=== PATIENT | female | born 1995 | race Caucasian/White ===

== ENCOUNTER 2018-04-08 15:15 | Emergency (ER) | payer BC ==
[2018-04-08 15:25] VITALS: BP 122/61
--- NOTE | 2018-04-08 15:36 | EDM.PDOC ---
ED HPI GENERAL MEDICAL PROBLEM - General Chief Complaint: Skin Complaint Stated Complaint: [id number] BIT OR SCRATCHED BY A CAT-RABIES CHECK Time Seen by Provider: 04/08/18 15:35 Source of Information: Reports: Patient History Limitations: Reports: No Limitations - History of Present Illness INITIAL COMMENTS - FREE TEXT/NARRATIVE: Healthy 22yr old at 22 weeks gestation presents with c/o a cat bite or scratch to the back of the left leg yesterday. Pt states she was walking her dog, and the dog and cat got into a fight. She states the cat had a collar on, looked healthy, and belongs to a known house in her neighborhood. She did not inquire of the cat's owners as to the vaccination status of the cat. She denies any fever, chills, or signs of wound infection. She denies any concerns or abnormal Sx's relating to her at this time. Pt has up to date tetanus vaccination. Onset Date: 04/07/18 Location: Reports: Lower Extremity, Left Severity: Mild Associated Symptoms: Reports: No Other Symptoms - Related Data Allergies Allergy/AdvReac Type Severity Reaction Status Date / Time azithromycin Allergy Rash Verified 04/08/18 15:22 [From Zithromax Z-Samm] Home Meds: Home Meds Acetaminophen [Tylenol Extra Strength] 1,000 mg PO ASDIRECTED PRN 11/04/15 [ History] Past Medical History HEENT History: Reports: Impaired Vision Cardiovascular History: Reports: None Respiratory History: Reports: None Gastrointestinal History: Reports: None Genitourinary History: Reports: None ANIMAL STUNNER History: Reports: Musculoskeletal History: Reports: None Neurological History: Reports: None Psychiatric History: Reports: None Endocrine/Metabolic History: Reports: None Hematologic History: Reports: None Immunologic History: Reports: None Oncologic (Cancer) History: Reports: None Dermatologic History: Reports: None - Infectious Disease History Infectious Disease History: Reports: None - Past Surgical History Head Surgeries/Procedures: Reports: None Social & Family History - Family History Family Medical History: Noncontributory - Tobacco Use Smoking Status *Q: Never Smoker Second Hand Smoke Exposure: No - Caffeine Use Caffeine Use: Reports: Soda, Tea - Recreational Drug Use Recreational Drug Use: No - Living Situation & Occupation Living situation: Reports: with Family ED ROS GENERAL - Review of Systems Review Of Systems: ROS reveals no pertinent complaints other than HPI. ED EXAM, SKIN/RASH Exam: See Below Exam Limited By: No Limitations General Appearance: Alert, WD/WN, No Apparent Distress Head: Atraumatic, Normocephalic Respiratory/Chest: No Respiratory Distress (Female) Exam: Other (benign gravid abd.) Extremities: Normal Range of Motion, Non-Tender, No Pedal Edema, Normal Capillary Refill, Other (linear abrasion 6cm to posterior left lower leg, no sign of infection) Neurological: Alert, No Motor/Sensory Deficits Psychiatric: Normal Mood Course - Vital Signs Last Recorded V/S: Last Vital Signs Temp 37.1 C 04/08/18 15:22 Pulse 100 04/08/18 15:22 Resp 18 04/08/18 15:22 BP 122/61 04/08/18 15:22 Pulse Ox 100 04/08/18 15:22 - Re-Assessments/Exams Free Text/Narrative Re-Assessment/Exam: 04/08/18 16:04 Dr. Lee made aware of the pt's injury. Departure - Departure Time of Disposition: 15:47 Disposition: Home, Self-Care 01 Condition: Good Clinical Impression: Cat bite of left lower leg Qualifiers: Encounter type: initial encounter Qualified Code(s): S81.852A - Open bite, left lower leg, initial encounter - Discharge Information Instructions: Animal Bite, [id number] Referrals: Lita Lee MD [Primary Care Provider] - Forms: ED Department Discharge Additional Instructions: Rx: Augmentin 875mg Rx: Bactroban ointment 2% Check with the house the cat belongs to for information regarding the rabies vaccination status of the animal, and to ensure the the cat will be monitored for 10 days for any signs of illness. Return to the ER if the cat cannot be observed for 10 days.
== END 2018-04-08 16:14 | disposition home or self-care (01) ==
LOC: DL.ED 15:15
DX: S81.852A Open bite, left lower leg, initial encounter (principal); Z88.1 Allergy status to other antibiotic agents; W55.01XA Bitten by cat, initial encounter
CPT/HCPCS: 99283

== ENCOUNTER 2021-03-25 20:05 | Emergency (ER) | payer BC, MEDICAID ==
[2021-03-25 21:48] VITALS: BP 101/44; PULSE 133
[2021-03-25] MEDS ORDERED: diphenhydrAMINE 50 MG/ML SDV IVPUSH ONE (23:11)
[2021-03-25] MEDS ORDERED: Lactated Ringers 1,000 ML IV ONE (23:11)
[2021-03-25] MEDS ORDERED: Ketorolac 30 MG/ML SDV IVPUSH ONE (23:11)
[2021-03-25] MEDS ORDERED: Sodium Chloride 0.9% 10 ML Syringe FLUSH PRN (23:12)
[2021-03-25] MEDS ORDERED: Iopamidol 612 MG/ML 100 ML Bottle IVPUSH ONE (23:12)
--- NOTE | 2021-03-25 23:12 | EDM.PDOC ---
ED HPI GENERAL MEDICAL PROBLEM - General Chief Complaint: Abdominal Pain Stated Complaint: OVER ALL CHECK PT NOT FEELING GOOD Time Seen by Provider: 03/25/21 23:12 Source of Information: Reports: Patient History Limitations: Reports: No Limitations - History of Present Illness INITIAL COMMENTS - FREE TEXT/NARRATIVE: Patient comes emergency department today from home with complaints of abdominal pain. This patient for the past 2 to 3 days has had waxing and waning intermittent lower abdominal pelvic pain. Sometimes it is in her back sometimes in her shoulder sometimes in her hand sometimes in her hip kind of rotates around her body. But over the past day it has been more persistent kind of constant cramping pain in the suprapubic region. She denies any fever or chill s. She has nausea without vomiting. She had no surgery in her abdomen in the past. She denies any hematuria dysuria or urinary frequency. No black or tarry stools or diarrhea. She does have a IUD in place and she has some intermittent vaginal spotting since IUD has been in place. Unsure if she is . She has not tried anything for the pain. No vaginal discharge or drainage. No dysparunia. - Related Data Allergies Allergy/AdvReac Type Severity Reaction Status Date / Time azithromycin Allergy Rash Verified 03/25/21 21:50 [From Zithromax Z-Samm] Home Meds: Home Meds Acetaminophen [Tylenol Extra Strength] 1,000 mg PO ASDIRECTED PRN 11/04/15 [History] Pnv No.95/Ferrous Fum/Folic AC [Prenavite Tablet] 1 each PO DAILY 08/11/18 [History] Past Medical History - Past Health History Medical/Surgical History: Denies Medical/Surgical History HEENT History: Reports: Impaired Vision Cardiovascular History: Reports: None Respiratory History: Reports: None Gastrointestinal History: Reports: None Genitourinary History: Reports: None CLAY MODELER History: Reports: None, Musculoskeletal History: Reports: None Neurological History: Reports: None Psychiatric History: Reports: None Endocrine/Metabolic History: Reports: None Hematologic History: Reports: None Immunologic History: Reports: None Oncologic (Cancer) History: Reports: None Dermatologic History: Reports: None - Infectious Disease History Infectious Disease History: Reports: None - Past Surgical History Head Surgeries/Procedures: Reports: None HEENT Surgical History: Reports: Oral Surgery Other HEENT Surgeries/Procedures: wisdom teeth removed Social & Family History - Family History Family Medical History: No Pertinent Family History Cardiac: Reports: None Endocrine/Metabolic: Reports: Hypothyroidism - Tobacco Use Tobacco Use Status *Q: Never Tobacco User Second Hand Smoke Exposure: No - Caffeine Use Caffeine Use: Reports: Coffee - Recreational Drug Use Recreational Drug Use: No - Living Situation & Occupation Living situation: Reports: with Family Occupation: Employed ([employer] student, works at [employer]) ED ROS GENERAL - Review of Systems Review Of Systems: Comprehensive ROS is negative, except as noted in HPI. ED EXAM, GI/ABD - Physical Exam Exam: See Below Exam Limited By: No Limitations General Appearance: Alert, WD/WN, No Apparent Distress Eyes: Bilateral: EOMI Ears: Normal External Exam Nose: Normal Inspection Throat/Mouth: Normal Inspection, Normal Lips, Normal Oropharynx, Normal Voice Head: Atraumatic, Normocephalic Neck: Normal Inspection, Supple, Non-Tender, Full Range of Motion Respiratory/Chest: No Respiratory Distress, Lungs Clear, Normal Breath Sounds, No Accessory Muscle Use, Chest Non-Tender Cardiovascular: Normal Peripheral Pulses, Regular Rate, Rhythm, Tachycardia GI/Abdominal Exam: Normal Bowel Sounds, Soft, Tender (She has some mild tenderness in the suprapubic region without guarding or rebound. Negative Matlock and McBurneys point tenderness. Most is really more deep pelvis. ) (Female) Exam: Deferred, Cervical Discharge (thick stringy yellowis discharge), Cervical Fluid, Cervical Lesions (multiple 1 small white ulcerations. ), Other (Completed with Jennifer José RN at the bedside. ). No: Adnexal Mass, Adnexal Tenderness, Cervical Dilatation, Cervix Motion Tenderness, Enlarged Uterus, Uterine Tenderness, Vaginal Bleeding, Vaginal Discharge, Vaginal Lesions, Vaginal Tears Rectal (Female) Exam: Deferred Back Exam: Normal Inspection, Full Range of Motion Extremities: Normal Inspection, Normal Range of Motion, Non-Tender, No Pedal Edema, Normal Capillary Refill Neurological: Alert, Oriented, CN II-XII Intact, Normal Cognition, Normal Gait, No Motor/Sensory Deficits Psychiatric: Normal Affect, Normal Mood Skin Exam: Warm, Dry, Intact, Normal Color, No Rash Lymphatic: No Adenopathy Course - Vital Signs Last Recorded V/S: Last Vital Signs Temp 99.1 F 03/25/21 21:47 Pulse 133 H 03/25/21 21:47 Resp 20 03/25/21 21:47 BP 101/44 L 03/25/21 21:47 Pulse Ox 100 03/25/21 21:47 - Orders/Labs/Meds Orders: Active Orders 24 hr Category Date Time Status CHLAMYDIA AND GONORRHEA BY TMA Stat Lab 03/25/21 21:24 Received Peripheral IV Insertion Adult [OM.PC] Stat Oth 03/25/21 23:11 Ordered Labs: Laboratory Tests 03/25/21 03/25/21 03/25/21 Range/Units 21:24 21:24 23:23 WBC 8.0 (5.0-10.0) 10^3/uL RBC 4.67 (4.2-5.4) 10^6/uL Hgb 14.1 (12.0-16.0) g/dL Hct 41.5 (37.0-47.0) % MCV 88.9 (80-100) fL MCH 30.2 (27.0-34.0) pg MCHC 34.0 (33.0-35.0) g/dL Plt Count 166 (150-450) 10^3/uL Neut % (Auto) 84.2 H (42.2-75.2) % Lymph % (Auto) 9.3 L (20.5-50.1) % [place] % (Auto) 6.3 (2-8) % Eos % (Auto) 0.1 L (1.0-3.0) % Baso % (Auto) 0.1 (0.0-1.0) % Sodium (136-145) mmol/L Potassium (3.5-5.1) mmol/L Chloride (98-107) mmol/L Carbon Dioxide (21-32) mmol/L Anion Gap (7-13) mEq/L BUN (7-18) mg/dL Creatinine (0.55-1.02) mg/dL Est Cr Clr Drug Dosing mL/min Estimated GFR (MDRD) BUN/Creatinine Ratio (No establ ref range) Glucose (70-99) mg/dL Calcium (8.5-10.1) mg/dL Total Bilirubin (0.2-1.0) mg/dL AST (15-37) U/L ALT (14-59) U/L Alkaline Phosphatase (46-116) U/L C-Reactive Protein (0.0-0.9) mg/dL Total Protein (6.4-8.2) g/dL Albumin (3.4-5.0) g/dL Globulin Albumin/Globulin Ratio Urine Color Yellow (YELLOW) Urine Appearance Clear (CLEAR) Urine pH 6.0 (5.0-9.0) Ur Specific [place] 1.015 (1.005-1.030) Urine Protein Negative (NEGATIVE) Urine Glucose (UA) Negative (NEGATIVE) Urine Ketones Negative (NEGATIVE) Urine Occult Blood Moderate H (NEGATIVE) Urine Nitrite Negative (NEGATIVE) Urine Bilirubin Negative (NEGATIVE) Urine Urobilinogen 0.2 (0.2-1.0) mg/dL Ur Leukocyte Esterase Negative (NEGATIVE) Urine RBC 10-20 H /HPF Urine WBC 0-5 (0-5/HPF) /HPF Ur Epithelial Cells Rare (NOT SEEN) /HPF Amorphous Sediment Rare (NOT SEEN) /HPF Urine Bacteria Occasional (0-FEW/HPF) /HPF Urine Mucus Occasional (NOT SEEN) /LPF Urine HCG, Qual Negative 03/25/21 Range/Units 23:23 WBC (5.0-10.0) 10^3/uL RBC (4.2-5.4) 10^6/uL Hgb (12.0-16.0) g/dL Hct (37.0-47.0) % MCV (80-100) fL MCH (27.0-34.0) pg MCHC (33.0-35.0) g/dL Plt Count (150-450) 10^3/uL Neut % (Auto) (42.2-75.2) % Lymph % (Auto) (20.5-50.1) % [place] % (Auto) (2-8) % Eos % (Auto) (1.0-3.0) % Baso % (Auto) (0.0-1.0) % Sodium 139 (136-145) mmol/L Potassium 3.5 (3.5-5.1) mmol/L Chloride 103 (98-107) mmol/L Carbon Dioxide 27 (21-32) mmol/L Anion Gap 12.5 (7-13) mEq/L BUN 11 (7-18) mg/dL Creatinine 0.71 (0.55-1.02) mg/dL Est Cr Clr Drug Dosing 119.84 mL/min Estimated GFR (MDRD) > 60 BUN/Creatinine Ratio 15.5 (No establ ref range) Glucose 112 H (70-99) mg/dL Calcium 8.3 L (8.5-10.1) mg/dL Total Bilirubin 0.7 (0.2-1.0) mg/dL AST 13 L (15-37) U/L ALT 20 (14-59) U/L Alkaline Phosphatase 41 L (46-116) U/L C-Reactive Protein 2.0 H (0.0-0.9) mg/dL Total Protein 6.8 (6.4-8.2) g/dL Albumin 3.6 (3.4-5.0) g/dL Globulin 3.2 Albumin/Globulin Ratio 1.1 Urine Color (YELLOW) Urine Appearance (CLEAR) Urine pH (5.0-9.0) Ur Specific [place] (1.005-1.030) Urine Protein (NEGATIVE) Urine Glucose (UA) (NEGATIVE) Urine Ketones (NEGATIVE) Urine Occult Blood (NEGATIVE) Urine Nitrite (NEGATIVE) Urine Bilirubin (NEGATIVE) Urine Urobilinogen (0.2-1.0) mg/dL Ur Leukocyte Esterase (NEGATIVE) Urine RBC /HPF Urine WBC (0-5/HPF) /HPF Ur Epithelial Cells (NOT SEEN) /HPF Amorphous Sediment (NOT SEEN) /HPF Urine Bacteria (0-FEW/HPF) /HPF Urine Mucus (NOT SEEN) /LPF Urine HCG, Qual Meds: Medications Discontinued Medications Generic Name Dose Route Start Last Admin Trade Name Freq PRN Reason Stop Dose Admin Ceftriaxone Sodium 500 mg/ 0 mg 03/26/21 01:32 03/26/21 01:54 Lidocaine HCl 1 ml IM 03/26/21 01:33 1 inj ONETIME ONE Administration Diphenhydramine HCl 25 mg 03/25/21 23:11 03/25/21 23:35 Diphenhydramine 50 Mg/Ml Sdv IVPUSH 03/25/21 23:12 25 mg ONETIME ONE Administration Doxycycline Monohydrate 100 mg 03/26/21 01:32 03/26/21 01:54 Doxycycline Monohydrate 100 Mg Cap PO 03/26/21 01:33 100 mg ONETIME ONE Administration Lactated Ringer's 1,000 mls @ 1,000 mls/hr 03/25/21 23:11 03/25/21 23:25 Ringers, Lactated IV 03/26/21 00:10 1,000 mls/hr .BOLUS ONE Administration Iopamidol 100 ml 03/25/21 23:12 Iopamidol 612 Mg/Ml 100 Ml Bottle IVPUSH 03/25/21 23:13 ONETIME ONE Ketorolac Tromethamine 30 mg 03/25/21 23:11 03/25/21 23:33 Ketorolac 30 Mg/Ml Sdv IVPUSH 03/25/21 23:12 30 mg ONETIME ONE Administration Morphine Sulfate 4 mg 03/25/21 23:59 03/26/21 00:07 Morphine 4 Mg/Ml Syringe IVPUSH 03/26/21 00:00 4 mg ONETIME ONE Administration Sodium Chloride 10 ml 03/25/21 23:12 03/25/21 23:33 Sodium Chloride 0.9% 10 Ml Syringe FLUSH 10 ml ASDIRECTED PRN Administration Keep Vein Open - Re-Assessments/Exams Free Text/Narrative Re-Assessment/Exam: 03/25/21 23:24 IV was established labs were drawn. Ketorolac and Benadryl for pain and nausea. Urinalysis does have some blood in it but no signs of infection. Laboratory evaluation shows a CBC with a WBC of 8.0, hemoglobin 14.1, platelet: 66. CMP with a glucose of 112 calcium 8.3 liver enzymes are normal. C-reactive protein 2.0. Urinalysis moderate amount of blood negative nitrites leukocytes, U RBCs 1020 U WBC 05. Pelvic exam was completed she had no adnexal tenderness. She had quite a bit of discharge from the cervical os. Although the wet prep was negative. She also had some lesions on her cervix as well. She had no chandelier sign. I was unable to identify the strings attached her IUD. Pelvic ultrasound completed shows intrauterine device in the correct placement. Normal ovaries without any concerns for torsion. Small amount of fluid in the cul-de-sac. GC chlamydia pending. Patient's pain is much improved after Toradol Benadryl and some morphine. Reexamination of the abdomen shows a soft nontender abdomen but she still has some tenderness in the suprapubic pelvic region. I am unsure of what is causing her discomfort for sure but I have concerns for pelvic inflammatory disease with the amount of discharge coming out of the cervical os. I will treat her with Rocephin 500 mg IM and then doxycycline 100 mg p.o. twice daily for the next 14 days. I would like her to visit with her primary care provider in the next week to talk about the strings that are missing from her IUD. Also recheck to ensure that her symptoms are getting better. Discharge instructions as below are explained to the patient she was comfortable with this plan and her questions were answered. Departure - Departure Time of Disposition: 01:30 Disposition: Home, Self-Care 01 Clinical Impression: PID (pelvic inflammatory disease), Lesion of cervix - Discharge Information Instructions: Pain Medicine Instructions, [id number], Pelvic Inflammatory Disease, [id number] Referrals: Gertrudis Cheung MD [Primary Care Provider] - Forms: ED Department Discharge Additional Instructions: Doxycycline 1 tablet twice daily for the next 14 days. RX given to the patient. Do not take this medication within 2 hrs of your daily medications. Take till gone no matter what. Tylenol and or Ibuprofen as needed for pain. Return to the ED if new or worsening symptoms. Follow up with PCP in 1 week for recheck and discuss the IUD strings that were not visualized. Sepsis Event Note (ED) - Evaluation Sepsis Screening Result: No Definite Risk - Focused Exam Vital Signs: Vital Signs Temp Pulse Resp BP Pulse Ox 03/25/21 21:47 99.1 F 133 H 20 101/44 L 100 - My Orders Last 24 Hours: My Active Orders 03/25/21 21:24 CHLAMYDIA AND GONORRHEA BY TMA Stat 03/25/21 23:11 Peripheral IV Insertion Adult [OM.PC] Stat - Assessment/Plan Last 24 Hours: My Active Orders 03/25/21 21:24 CHLAMYDIA AND GONORRHEA BY TMA Stat 03/25/21 23:11 Peripheral IV Insertion Adult [OM.PC] Stat
[2021-03-25 23:54] LABS: ANION GAP 12.5 mEq/L (7-13); CHLORIDE,CL 103 mmol/L (98-107); SODIUM,NA 139 mmol/L (136-145)
[2021-03-25] MEDS ORDERED: Morphine 4 MG/ML Syringe IVPUSH ONE (23:59)
[2021-03-26] MEDS ORDERED: Doxycycline Monohydrate 100 MG Cap PO ONE (01:32)
[2021-03-26] MEDS ORDERED: cefTRIAXone 500 MG, Lidocaine 1% 1 ML IM ONE ×2 (01:32)
--- NOTE | 2021-03-26 02:01 | US ---
PROCEDURE INFORMATION: Exam: US Nonobstetric Pelvis; Complete Exam date and time: 03/26/2021 12:57 AM Age: 25 years old Clinical indication: Pelvic pain; Additional info: Pelvic pain discharge missing iud strings. TECHNIQUE: Imaging protocol: Transabdominal pelvic nonobstetric ultrasound. Complete exam. Real time ultrasound with image documentation. COMPARISON: No relevant prior studies available. FINDINGS: Uterus/cervix: Uterus is 8.3 x 3.4 x 5.1 cm. No uterine mass. No endometrial fluid. IUD is seen within the uterine cavity. Right adnexa: Right ovary is 2.3 x 2.2 x 2.2 cm. No adnexal mass or cyst. No evidence of torsion. Left adnexa: Left ovary is 4.9 x 1.7 x 2.5 cm. No cyst or mass. No evidence of torsion. Intraperitoneal space: Nonspecific minor free fluid in the pelvic cul-de-sac. Urinary bladder: Urinary bladder is unremarkable. IMPRESSION: 1. IUD is noted within the uterine cavity. 2. No uterine enlargement or endometrial thickening evident. No endometrial fluid. 3. Normal bilateral ovaries. 4. Nonspecific minor free fluid in the pelvic cul-de-sac.
[2021-03-27 11:46] LABS: C.TRACHOMATIS BY TMA Negative (Negative); N.GONORRHOEAE BY TMA Negative (Negative)
== END 2021-03-26 02:01 | disposition home or self-care (01) ==
LOC: DL.ED 20:05
DX: N73.9 Female pelvic inflammatory disease, unspecified (principal); L98.9 Disorder of the skin and subcutaneous tissue, unspecified; Z88.1 Allergy status to other antibiotic agents
CPT/HCPCS: 36415; 76856; 80053; 81001; 81025; 85025; 86140; 87210; 87491; 87591; 96372; 96374; 96375; 99283; 99284; A9270; J0696; J1200; J1885; J2270; J7120